=== PATIENT | female | born 1985 | race Caucasian/White ===

== ENCOUNTER 2016-11-07 14:43 | Inpatient (IN) | payer OTHER ==
[2016-11-07 15:06] VITALS: BMI 29.4
[2016-11-07] MEDS ORDERED: Ampicillin 2 GM in Sodium Chloride 0.9% 100 ML IVPB STA (15:16)
[2016-11-07] MEDS: Lactated Ringer's 1,000 ML IV SCH (15:30)
[2016-11-07 16:01] LABS: BASO # 0.1 K/uL (0.0-0.2); BASO % 0.5 % (0.0-2.0); EOS # 0.4 K/uL (0.0-0.7); EOS % 3.5 % (0.0-4.0); HEMATOCRIT 35.1 % (34.0-47.0); LYMPH # 2.6 K/uL (1.0-4.3); LYMPH % 23.5 % (20.0-40.0); MEAN CELL VOLUME 80.4 fl (81.0-99.0); MEAN CORPUSCULAR HEMOGLOBIN 26.7 pg (27.0-31.0); MEAN CORPUSCULAR HGB CONC 33.2 g/dL (33.0-37.0); MEAN PLATELET VOLUME 10.7 fl (7.2-11.7); MONO # 0.7 K/uL (0.0-0.8); MONO % 6.4 % (0.0-10.0); NEUT # 7.3 K/uL (1.8-7.0); NEUT % 66.1 % (50.0-75.0); WHITE BLOOD COUNT 11.1 K/uL (4.8-10.8)
[2016-11-07] MEDS: Betamethasone Soluspan 30 mg/5mL Inj Susp IM ONE (16:03)
--- NOTE | 2016-11-07 16:29 | OBADHP ---
Datetime: 11/07/2016 16:28 Admit Comment, IP Provider: 31 yo edc 12/08 by 18wk us presents for admission for induction 2 ndary to anhydramnios diagnosed today. She denies ctxs, srom, bleeding or decreased fm PMHx sig for hypothyroidism obhx: @term w/ h/o GDM nkda medicpnv synthroid i: 35.4WKS ANHYDRAMNIOS P: admit for induction Betamethasone today. Repeat in 24hrs. indications for delivery d/w pt. Datetime: 11/07/2016 16:23 Pelvic Type - PN: Not Done Extremities - PN: Normal Abdomen - PN: Normal Back - PN: Normal Heart - PN: Normal Neurologic - PN: Normal HEENT - PN: Normal General - PN: Normal FHR - Baseline A Provider: 130 Gestation - Est Wks by US: 35.4 Vital Signs Provider: Within Normal Limits IP Chief Complaint: Other NICHD Variability Prov Fetus A: Moderate 6-25bpm NICHD Accel Fetus A IP Provider: [id number] FHR Category Provider Fetus A: Category I NICHD Decel Fetus A IP Provider: None Genitourinary Exam: Not Done EGA AdmitDate IP: 35.4 IP Adm Impression: , intrauterine IP Admit Plan: Admit to unit
--- NOTE | 2016-11-07 18:14 | OBADHP ---
Datetime: 11/07/2016 18:04 IP Chief Complaint Other: anhydramnios IP Adm Impression Other: anhydramnios possible ROM Admit Comment, IP Provider: had discussed sono with perinatologist who advises for delivery but to s tart on antibiotics for possible suspected ROM, and steroids since prematurity. PT and partner discu ssed the situation and understands and agreed. Extremities - PN: Normal Abdomen - PN: Abnormal Breast - PN: Normal Lungs - PN: Normal Thyroid - PN: Normal Neurologic - PN: Normal General - PN: Normal Weight - Estimated: 5# 9oz by sono Presentation-Admit: cephalic FHR - Baseline A Provider: 150's Membranes, Provider: anhydramnios Contraction Comments Provider: irregular Comments, ACOG Physical Exam: abd at 34 cm above sp, fundus NT Ext no calf tenderness Gestation - Est Wks by US: 35w 4d Pool Provider: Negative Vital Signs Provider: Reviewed IP Chief Complaint: Suspected ruptured membranes; Other NICHD Variability Prov Fetus A: Moderate 6-25bpm NICHD Accel Fetus A IP Provider: [id number] NICHD Decel Fetus A IP Provider: None Dilatation, Provider: closed Effacement, Provider: soft Genitourinary Exam: Normal DTRs - PN: Normal EGA AdmitDate IP: 35.4 IP Adm Impression: , intrauterine IP Admit Plan: Admit to unit; Initiate labor induction protocol
[2016-11-07] MEDS: AMPicillin 1 GM in Sodium Chloride 0.9% 100 ML IVPB SCH (20:25)
[2016-11-08] MEDS: AMPicillin 1 GM in Sodium Chloride 0.9% 100 ML IVPB SCH ×6 (00:30→20:30)
[2016-11-08] MEDS: Lactated Ringer's 1,000 ML IV SCH ×2 (01:00→23:00)
[2016-11-08] MEDS: Betamethasone Soluspan 30 mg/5mL Inj Susp IM ONE (16:12)
[2016-11-09] MEDS: AMPicillin 1 GM in Sodium Chloride 0.9% 100 ML IVPB SCH ×5 (00:30→18:04)
[2016-11-09] MEDS ORDERED: Lactated Ringer's 1,000 ML IV SCH (13:15)
[2016-11-09] MEDS ORDERED: Bupivacaine HCl 0.25% PF (10 ml) Inj ONE (13:28)
[2016-11-09] MEDS ORDERED: Fentanyl/Bupivacaine HCl 250 ML EPI ONE (13:28)
[2016-11-09] MEDS: Lactated Ringer's 1,000 ML IV SCH (14:00)
[2016-11-09] MEDS ORDERED: ePHEDrine 50 mg/ml Inj ONE (21:35)
[2016-11-09] MEDS ORDERED: Morphine 1 mg/ml preservative-free Inj(Duramorph) ONE (21:36)
[2016-11-09] MEDS ORDERED: Oxycodone/Acetaminophen 5/325 mg Tab PO PRN (23:04)
[2016-11-10] MEDS ORDERED: Oxycodone/Acetaminophen 5/325 mg Tab PO PRN (00:32)
[2016-11-10] MEDS ORDERED: cefOXitin Sodium 1 GM in Sodium Chloride 0.9% 100 ML IVPB SCH (01:00)
[2016-11-10] MEDS ORDERED: DiphenhydrAMINE 50 mg/ml Inj IVP PRN (02:25)
[2016-11-10] MEDS: Levothyroxine 50 MCG TAB PO SCH (06:01)
[2016-11-10] MEDS ORDERED: Levothyroxine 50 MCG TAB PO SCH (06:30)
--- NOTE | 2016-11-10 08:06 | CP.PCM.PN ---
Subjective - Date & Time of Evaluation Date of Evaluation: 11/10/16 Time of Evaluation: 07:44 - Subjective Subjective: 31y/o F with pmhx significant for hypothyroid s/p primary for oligohydramnios complicated by inadvertant dural puncture during epidural labor anesthesia. Intrathecal catheter was used during labor, bolused for the c- section with no apparent complications. Patient was seen and examined with no motor or sensor deficits, c/o moderate abdominal pain. Had extensive discussion with both patient and regarding possibilty of PDPH and need of blood patch. They both understood and agreed. Will remove catheter tomorrow and re- assess. Objective - Medications Medications: Current Medications Diphenhydramine HCl (Benadryl) 50 mg IVP Q6 PRN PRN Reason: Itching / Pruritus Docusate Sodium (Colace) 100 mg PO BID [facility] Cefoxitin Sodium 1 gm/ Sodium (Chloride) 100 mls @ 100 mls/hr IVPB Q8 [facility] Oxytocin (Pitocin 20 Units In Lr) 1,000 mls @ 125 mls/hr IV .Q8H PRN PRN Reason: Post Ceaserean Section Ibuprofen (Motrin Tab) 600 mg PO Q4H PRN PRN Reason: Pain, Mild (1-3) Ketorolac Tromethamine (Toradol) 30 mg IVP Q6 PRN PRN Reason: For PCEA Breakthrough Pain Levothyroxine Sodium (Synthroid) 50 mcg PO DAILY@0630 [facility] Last Admin: 11/10/16 06:01 Dose: 50 mcg Ondansetron HCl (Zofran Inj) 4 mg IVP Q6 PRN PRN Reason: Nausea/Vomiting Oxycodone/Acetaminophen (Percocet 5/325 Mg Tab) 1 tab PO Q4 PRN PRN Reason: Pain, moderate (4-7) Stop: 11/12/16 23:05 - Labs Labs: 11/07/16 15:30
--- NOTE | 2016-11-10 08:25 | OBDS ---
DELIVERY PERSONNEL Delivery Doctor: Shreyas Martínez MD Scrub Nurse: Stacey Tang RN Executor Of Estate: Tereza Jamil RN Anesthesiologist: Marline MATERNAL INFORMATION Delivery Anesthesia: Epidural Medications in Delivery: Pitocin Estimated Blood Loss (ml): 800 Placenta Cultured: Yes Other Maternal Complications: anhydramnios Provider Comments: see dictated surgeons note LABOR SUMMARY EDC: 12/08/2016 00:00 No. Babies in Womb: 1 Attempted: No Labor Anesthesia: Epidural LABOR INFORMATION Reason for Induction Other: anhydramnios Onset of Labor: 11/09/2016 13:24 Cervical Ripening Agents: Cervidil (Annotations: Cervidil Removed By Dr. Martínez ) Oxytocin: Induction Group B Beta Strep: Negative Antibiotics # of Doses: 12 Antibiotics Time of Last Dose: 1804 Steroids Given: Full Course; > 24 Hours before Delivery Reason Steroids Not Administered: Not Applicable MEMBRANES Membranes Rupture Method: Artificial Rupture of Membranes: 11/09/2016 22:10 Length of Rupture (hrs): 0.02 Amniotic Fluid Color: Clear Amniotic Fluid Amount: Scant Amniotic Fluid Odor: Normal STAGES OF LABOR Stage 3 hrs: 0 Stage 3 min: 1 Total Time in Labor hrs: 8 Total Time in Labor min: 48 VAGINAL DELIVERY Episiotomy: None Laceration Extension: N/A Laceration Type: None Laceration Repair: Not Applicable CSECTION DELIVERY Primary Indication: Arrest of Dilitation Other Primary Indication: Nonreassuring Heart Tracing Secondary Indication: anhydramnios CSection Urgency: Non Elective CSection Incidence: Primary Labor: Labor Elective: Nonelective CSection Incision: Lower Uterine Transverse Uterine Closure: Double-layer closure BABY A INFORMATION Infant Delivery Date/Time: 11/09/2016 22:11 Method of Delivery: Born in Route : No : N/A Forceps: N/A Vacuum Extraction: N/A Shoulder Dystocia : No SHOULDER DYSTOCIA BABY A Delivery Date/Time: 11/09/2016 22:11 PRESENTATION/POSITION BABY A Presentation: Cephalic PLACENTA INFORMATION BABY A Placenta Delivery Time : 11/09/2016 22:12 Placenta Method of Delivery: Expressed Placenta Status: Delivered SCORES BABY A Heart Rate 1 min: >100 bpm Resp Effort 1 min: Good Cry Reflex Irritability 1 min: Cough or Sneeze or Pulls Away Muscle Tone 1 min: Active Motion Color 1 min: Body [place], Extremities Blue Resuscitation Effort 1 min: Tactile Stimulation SCORE 1 MIN: 9 Heart Rate 5 min: >100 bpm Resp Effort 5 min: Good Cry Reflex Irritability 5 min: Cough or Sneeze or Pulls Away Muscle Tone 5 min: Active Motion Color 5 min: Body [place], Extremities Blue Resuscitation Effort 5 min: N/A SCORE 5 MIN: 9 INFORMATION BABY A Gestational Age at Delivery: 35.6 Gestational Status: Outcome : Liveborn Condition : Stable Sex: Male IDENTIFICATION/MEDS BABY A ID Band Number: [id number] ID Band Location: Left Leg; Left Arm WEIGHT/LENGTH BABY A Infant Birthweight (gms): 2505 Infant Weight (lb): 5 Weight (oz): 8 Infant Length Inches: 18 1/4 CORD INFORMATION BABY A No. Cord Vessels: 3 Nuchal Cord : N/A Cord pH Baby Arterial: n/a Infant Cord pH Baby Venous: n/a Cord Blood Taken: Yes Infant Suction: Mouth; Nose ASSESSMENT BABY A Complications: Decreased Variability; Multiple Variable Decels Physical Findings at Delivery: Within Normal Limits Physical Findings Other: , SGA Infant Respirations: Grunting Head Control Clerk/ALS Called : No Infant Care By: Dr Lali Yip Transferred To: [facility]
--- NOTE | 2016-11-10 08:33 | OBPPN ---
Datetime: 11/10/2016 08:26 PP Pain Prov: Within normal limits PP Pain Prov comment: no SOB, chest pains or leg pains PP Nausea Prov: Denies PP Nausea Prov comment: no headaches PP Breasts Prov: Normal PP Lungs Prov: Normal PP Abdomen/Uterus Prov: Abnormal PP Lochia Prov: Normal PP Vulva/Perineum Prov: Normal PP CVA Tenderness Prov: Normal PP Extremities Prov: Normal PP C/S Incision Prov: Normal PP Progress Prov: Normal PP Comments Phys Exam Prov: breast feeding; Abd soft not distended, fundus firm, dressing intact no sign of active bleeding, Negron in place draining yellowish fluid, Ext no calf tenderness, venodyne in place. PP Impression Prov: Normal progression PP Plan Prov: Continue present management PP Progress Note Prov: Visited by anesthesiologist this am, breast feeding with no problems at this time. Will keep negron until pt able to radha OOB Pending CBC tjhis am Start advancing diet Continue po care. IP PP Procedures: None
[2016-11-10] MEDS: cefOXitin Sodium 1 GM in Sodium Chloride 0.9% 100 ML IVPB SCH ×2 (08:55→16:32)
[2016-11-11] MEDS: Levothyroxine 50 MCG TAB PO SCH (06:30)
[2016-11-11 09:20] LABS: HEMATOCRIT 32.7 % (34.0-47.0); MEAN CELL VOLUME 80.4 fl (81.0-99.0); MEAN CORPUSCULAR HEMOGLOBIN 26.6 pg (27.0-31.0); MEAN CORPUSCULAR HGB CONC 33.1 g/dL (33.0-37.0); RED CELL DISTRIBUTION WIDTH 14.2 % (11.5-14.5); WHITE BLOOD COUNT 18.9 K/uL (4.8-10.8)
[2016-11-11] MEDS ORDERED: Apap-Butalbital-Caffeine 325-50-40mg Tab PO SCH (10:00)
--- NOTE | 2016-11-11 10:05 | CP.PCM.PN ---
Subjective - Date & Time of Evaluation Date of Evaluation: 11/11/16 Time of Evaluation: 09:59 - Subjective Subjective: Patient seen & examined. Complaining of new neck stiffness/soreness since yesterday afternoon. Worsened with sitting up accompanied with mild/moderate headache. Likely post-dural puncture headache symptoms from inadvertant dural puncture on 11/09. Counseled on laying supine as much as possible, encouraged hydration with caffeinated beverages and discussed the possibilty of epidural blood patch. Will order IV fluids, Fiorcet and continue to follow. Both patient & understand management and plan. Objective - Medications Medications: Current Medications Acetaminophen/Butalbital/Caffeine (Fioricet) 1 tab PO Q4 [facility] Stop: 11/12/16 10:00 Diphenhydramine HCl (Benadryl) 50 mg IVP Q6 PRN PRN Reason: Itching / Pruritus Docusate Sodium (Colace) 100 mg PO BID [facility] Last Admin: 11/11/16 08:22 Dose: 100 mg Lactated Ringer's (Lactated Ringer's) 1,000 mls @ 125 mls/hr IV .Q8H [facility] Stop: 11/12/16 10:00 Ibuprofen (Motrin Tab) 600 mg PO Q4H PRN PRN Reason: Pain, Mild (1-3) Last Admin: 11/11/16 07:42 Dose: 600 mg Ketorolac Tromethamine (Toradol) 30 mg IVP Q6 PRN PRN Reason: For PCEA Breakthrough Pain Levothyroxine Sodium (Synthroid) 50 mcg PO DAILY@0630 [facility] Last Admin: 11/11/16 06:30 Dose: 50 mcg Ondansetron HCl (Zofran Inj) 4 mg IVP Q6 PRN PRN Reason: Nausea/Vomiting Oxycodone/Acetaminophen (Percocet 5/325 Mg Tab) 1 tab PO Q4 PRN PRN Reason: Pain, moderate (4-7) Stop: 11/12/16 23:05 Last Admin: 11/10/16 14:44 Dose: 1 tab - Labs Labs: 11/11/16 08:30
[2016-11-11] MEDS: Lactated Ringer's 1,000 ML IV SCH ×2 (10:14→19:04)
--- NOTE | 2016-11-11 11:59 | OBPPN ---
Datetime: 11/11/2016 11:49 PP Pain Prov: Within normal limits PP Pain Prov comment: no SOB chest pains or leg pains PP Nausea Prov: Denies PP Flatus Prov: Yes PP BM Prov: No PP Nausea Prov comment: c/o headache when sitting and some neck pain PP Breasts Prov: Normal PP Lungs Prov: Normal PP Abdomen/Uterus Prov: Abnormal PP Lochia Prov: Normal PP Vulva/Perineum Prov: Normal PP CVA Tenderness Prov: Normal PP Extremities Prov: Normal PP C/S Incision Prov: Normal PP Progress Prov: Normal PP Comments Phys Exam Prov: Breast not engourged, abd soft not distended fundus firm below the umb. Incissiion clean and dry no suppt or discharge no active bleeding Ext no calf tenderness. PP Impression Prov: Normal progression PP Plan Prov: Continue present management PP Progress Note Prov: has been evaluated by anesthesia for spinal headache and cathether removed wi ll be re-evaluated tonight for possible blood patch Continue PO care IP PP Procedures: None Vital Signs Provider PP: Reviewed
[2016-11-11] MEDS: Apap-Butalbital-Caffeine 325-50-40mg Tab PO SCH ×3 (14:08→21:50)
[2016-11-11] MEDS ORDERED: Lactated Ringer's 500 ML IV SCH (15:00)
[2016-11-12] MEDS: Apap-Butalbital-Caffeine 325-50-40mg Tab PO SCH ×5 (02:00→20:56)
[2016-11-12] MEDS: Lactated Ringer's 1,000 ML IV SCH ×5 (02:00→17:32)
[2016-11-12] MEDS: Levothyroxine 50 MCG TAB PO SCH (06:08)
--- NOTE | 2016-11-12 09:55 | CP.PCM.PN ---
Subjective - Date & Time of Evaluation Date of Evaluation: 11/12/16 Time of Evaluation: 09:36 - Subjective Subjective: Patient seen and examined. Following 24 hours of conservative management ( aggressive IV hydration, Fiorcet, etc) patient still complaining of headache and neck stiffness, so after extensive discussion with patient & decision to perform epidural blood patch. Informed consent was obtained, time out was called with nurse present and procedure was performed. While carefully advancing the Tuohy needle CSF appeared, procedure was abandoned and sphenopalantine ganglion block was performed. Again, there was an extensive discussion with the patient and regarding the procedures. All questions were answered. Will continue Fiorcet & Motrin for pain management and aggressive IV hydration. Objective - Medications Medications: Current Medications Diphenhydramine HCl (Benadryl) 50 mg IVP Q6 PRN PRN Reason: Itching / Pruritus Docusate Sodium (Colace) 100 mg PO BID [facility] Last Admin: 11/11/16 16:44 Dose: 100 mg Lactated Ringer's (Lactated Ringer's) 1,000 mls @ 125 mls/hr IV .Q8H [facility] Stop: 11/12/16 10:00 Last Admin: 11/12/16 02:00 Dose: 125 mls/hr Ibuprofen (Motrin Tab) 600 mg PO Q4H PRN PRN Reason: Pain, Mild (1-3) Last Admin: 11/12/16 00:36 Dose: 600 mg Ketorolac Tromethamine (Toradol) 30 mg IVP Q6 PRN PRN Reason: For PCEA Breakthrough Pain Levothyroxine Sodium (Synthroid) 50 mcg PO DAILY@0630 [facility] Last Admin: 11/12/16 06:08 Dose: 50 mcg Ondansetron HCl (Zofran Inj) 4 mg IVP Q6 PRN PRN Reason: Nausea/Vomiting Oxycodone/Acetaminophen (Percocet 5/325 Mg Tab) 1 tab PO Q4 PRN PRN Reason: Pain, moderate (4-7) Stop: 11/12/16 23:05 Last Admin: 11/10/16 14:44 Dose: 1 tab - Labs Labs: 11/11/16 08:30
--- NOTE | 2016-11-12 10:24 | CP.PCM.PN ---
Subjective - Date & Time of Evaluation Date of Evaluation: 11/12/16 Time of Evaluation: 09:30 - Subjective Subjective: After aborted epidural blood patch, bilateral sphenopalatine ganglion block was performed. Patient was placed in supine position with neck extended. A 20G IV catheter was inserted into the left nostril until resistance was met, then 1cc of 4% lidocaine was gradually given. A nasal swab soaked in Lidocaine was then placed into the nostril. The same procedure was repeated in the right nostril. The swabs were then removed after 10 minutes. Patient tolerated procedure well. Objective - Medications Medications: Current Medications Acetaminophen/Butalbital/Caffeine (Fioricet) 1 tab PO Q4 [facility] Stop: 11/13/16 10:00 Diphenhydramine HCl (Benadryl) 50 mg IVP Q6 PRN PRN Reason: Itching / Pruritus Docusate Sodium (Colace) 100 mg PO BID [facility] Last Admin: 11/12/16 09:36 Dose: 100 mg Lactated Ringer's (Lactated Ringer's) 1,000 mls @ 125 mls/hr IV .Q8H [facility] Stop: 11/13/16 10:00 Ibuprofen (Motrin Tab) 600 mg PO Q4H PRN PRN Reason: Pain, Mild (1-3) Last Admin: 11/12/16 00:36 Dose: 600 mg Ketorolac Tromethamine (Toradol) 30 mg IVP Q6 PRN PRN Reason: For PCEA Breakthrough Pain Levothyroxine Sodium (Synthroid) 50 mcg PO DAILY@0630 [facility] Last Admin: 11/12/16 06:08 Dose: 50 mcg Ondansetron HCl (Zofran Inj) 4 mg IVP Q6 PRN PRN Reason: Nausea/Vomiting Oxycodone/Acetaminophen (Percocet 5/325 Mg Tab) 1 tab PO Q4 PRN PRN Reason: Pain, moderate (4-7) Stop: 11/12/16 23:05 Last Admin: 11/10/16 14:44 Dose: 1 tab - Labs Labs: 11/11/16 08:30
[2016-11-12 17:02] LABS: BASO % 0.1 % (0.0-2.0); EOS # 0.3 K/uL (0.0-0.7); EOS % 1.7 % (0.0-4.0); HEMATOCRIT 32.6 % (34.0-47.0); LYMPH # 3.7 K/uL (1.0-4.3); LYMPH % 21.7 % (20.0-40.0); MEAN CELL VOLUME 79.3 fl (81.0-99.0); MEAN CORPUSCULAR HEMOGLOBIN 26.5 pg (27.0-31.0); MEAN CORPUSCULAR HGB CONC 33.4 g/dL (33.0-37.0); MEAN PLATELET VOLUME 9.9 fl (7.2-11.7); MONO % 5.7 % (0.0-10.0); NEUT # 12.2 K/uL (1.8-7.0); NEUT % 70.8 % (50.0-75.0); WHITE BLOOD COUNT 17.3 K/uL (4.8-10.8)
[2016-11-13] MEDS: Apap-Butalbital-Caffeine 325-50-40mg Tab PO SCH ×6 (02:18→21:48)
[2016-11-13] MEDS: Levothyroxine 50 MCG TAB PO SCH (06:38)
--- NOTE | 2016-11-13 10:19 | OBPPN ---
Datetime: 11/13/2016 10:11 PP Pain Prov: Abnormal PP Pain Prov comment: No SOB, chest pains or leg pain PP Nausea Prov: Denies PP Flatus Prov: Yes PP BM Prov: Yes PP Nausea Prov comment: c/o neck and headaches still not relieved PP Breasts Prov: Normal PP Lungs Prov: Normal PP Abdomen/Uterus Prov: Abnormal PP Lochia Prov: Normal PP Vulva/Perineum Prov: Normal PP CVA Tenderness Prov: Normal PP Extremities Prov: Normal PP C/S Incision Prov: Normal PP Progress Prov: Normal PP Comments Phys Exam Prov: Abd soft not distended, fundur firm below umb. Incision clean and dry n o suppt or discharge, no sign of infection Ext no edema or calf tenderness PP Impression Prov: Pain PP Plan Prov: Continue present management PP Impression Other Prov: spinal headaches PP Progress Note Prov: Discussed with anesthesia team (Dr Castro and Dr Tarango) and attempted blood patc h yesterday not working and will continue with present management since it appears small amount of im provement CBC improving and will engoureaged po fluids and continue for now with present management B oth pt and explained the situation and the plan and questions were answered to the best of my abilities. Understands and agreed. IP PP Procedures: None Vital Signs Provider PP: Reviewed
--- NOTE | 2016-11-13 14:44 | CP.PCM.PN ---
Subjective - Date & Time of Evaluation Date of Evaluation: 11/13/16 Time of Evaluation: 14:36 - Subjective Subjective: Patient seen and examined. Complaining of continued neck pain/stiffness and headache worsened with sitting up. Denies photophobia or tinnitus. Mild/ Moderate relief of symptoms with current pain medication regimen. Will keep admitted in hospital for one more day and re-asses tomorrow morning for discharge. Spoke at length with both patient& regarding plan and both verbalized understanding Objective - Medications Medications: Current Medications Acetaminophen/Butalbital/Caffeine (Fioricet) 1 tab PO Q4H [facility] Last Admin: 11/13/16 14:20 Dose: 1 tab Diphenhydramine HCl (Benadryl) 50 mg IVP Q6 PRN PRN Reason: Itching / Pruritus Docusate Sodium (Colace) 100 mg PO BID [facility] Last Admin: 11/13/16 08:21 Dose: 100 mg Ibuprofen (Motrin Tab) 600 mg PO Q4H PRN PRN Reason: Pain, Mild (1-3) Last Admin: 11/13/16 08:21 Dose: 600 mg Ketorolac Tromethamine (Toradol) 30 mg IVP Q6 PRN PRN Reason: For PCEA Breakthrough Pain Ketorolac Tromethamine (Toradol) 30 mg IVP Q6 [facility] Stop: 11/14/16 14:16 Last Admin: 11/13/16 14:21 Dose: 30 mg Levothyroxine Sodium (Synthroid) 50 mcg PO DAILY@0630 [facility] Last Admin: 11/13/16 06:38 Dose: 50 mcg Ondansetron HCl (Zofran Inj) 4 mg IVP Q6 PRN PRN Reason: Nausea/Vomiting - Labs Labs: 11/12/16 16:20
[2016-11-13] MEDS: Lactated Ringer's 1,000 ML IV SCH (20:26)
[2016-11-14] MEDS: Apap-Butalbital-Caffeine 325-50-40mg Tab PO SCH ×2 (03:03→06:44)
[2016-11-14] MEDS: Lactated Ringer's 1,000 ML IV SCH (04:34)
[2016-11-14] MEDS: Levothyroxine 50 MCG TAB PO SCH (06:17)
--- NOTE | 2016-11-14 08:24 | OBPPN ---
Datetime: 11/14/2016 08:15 PP Pain Prov: Abnormal PP Pain Prov comment: no SOB, chest pains or leg pains PP Nausea Prov: Denies PP Flatus Prov: Yes PP BM Prov: Yes PP Nausea Prov comment: still c/o neckstiffness and if stands for long period some heada PP Flatus Prov comment: Admits better than yesterday and the day before PP Breasts Prov: Normal PP Lungs Prov: Normal PP Abdomen/Uterus Prov: Abnormal PP Lochia Prov: Normal PP Vulva/Perineum Prov: Normal PP CVA Tenderness Prov: Normal PP Extremities Prov: Normal PP C/S Incision Prov: Normal PP Progress Prov: Normal PP Comments Phys Exam Prov: Breast not engorged NT breast feeding; Abd soft not distended, fundus firm below the umb. Incision clean and dry no suppt or discharge P rolene in place no sign of active bleeding ot infection. Ext no leg edema or calf tenderness. PP Plan Prov: Continue present management PP Impression Other Prov: spinal headaches PP Progress Note Prov: Will discuss with anesthesia for possible D/C this pm and follow up in office and in pain Clinic. IP PP Procedures: None
--- NOTE | 2016-11-14 08:42 | OBDCSUM ---
Datetime: 11/14/2016 08:38 Discharged to, Provider: Home Follow up at, Provider: Dr Martínez Disch Instr Activity: Bedrest; May be up to bathroom; May be up for meals; May Shower Disch Instr Diet: Regular Discharge Instructions, Provider: Routine instructions given Discharge Diagnosis, Provider: Term Delivered Discharge Time: 11/14/2016 12:00 Follow up in weeks, Provider: 1 wk Contraception discussed, Prov: Yes Disch Activity Restrictions: No exercising; No lifting; No driving; Minimize walking; Minimize stair -climbing; No sexual activity; Nothing in vagina - [place], tampons, douche Discharge Comment, Provider: follow up in pain clinic with Dr Castro who will also contact her on for follow up Rx for Fioricet given Discharge Diagnosis Prov Other: spinal headaches Contraception after Delivery: Undecided
[2016-11-14 17:55] VITALS: BP 120/70; PULSE 59; RESP 20; TEMP 98.7; O2SAT 99
--- NOTE | 2016-11-15 10:37 | OP ---
PROCEDURE DATE: 11/09/2016 PREOPERATIVE DIAGNOSES: 1. at 35 plus weeks' gestation. 2. Anhydramnios. 3. Arrest of dilatation. 4. Nonreassuring tracing. 5. Thyroid disease. POSTOPERATIVE DIAGNOSES: 1. at 35 plus weeks' gestation. 2. Fibroid uterus. PROCEDURE PERFORMED: Primary low-transverse segment caesarean section. SURGEON: Dr. Kalpesh Martínez. SERVICE ASSOCIATE: Dr. Obinna Rodriguez, who was there for the entire duration of the case. Busser needed in providing positioning of the patient, delivering of the baby, opening and closure of the abdomen. ANESTHESIA USED: Epidural. ANESTHESIA ADMINISTERED BY: Sam Horan MD ESTIMATED BLOOD LOSS: 800 mL DRAINS USED: None. REPLACEMENTS USED: None. FINDINGS: 1. Delivered living baby boy, baby appears adequate for gestational age, baby cried spontaneously, pediatrist in attendance, score of 9 and 9. 2. Amniotic fluid clear. 3. Placenta complete and intact. 4. Both tubes and ovaries appeared grossly within normal limits to inspection bilaterally. 5. Two fibroids present, one intramural about 3 to 4 cm in the mid section of the uterus and the other one about 2 to 3 cm subserosal in the anterior fundal area on the uterus. DESCRIPTION OF PROCEDURE: The patient was taken to the operating room and placed on the operating table in a supine position with an indwelling Palacios catheter draining clear fluid. At this time, epidural anesthesia was previously induced with Augmentin and the Venodyne boots were applied to both legs. The abdomen was then draped and prepped in the usual sterile manner. Anesthesia tested and found to be well secured. A Pfannenstiel incision was then made using sharp dissection and the incision was then extended down to subcutaneous tissue also using sharp dissection. Hemostasis was obtained by means of electrocoagulation. Fascia was then identified, was then entered, and the midline incision of the fascia was then extended laterally on each direction. At this time, rectus muscle was then identified and was then slit in the midline, exposing the peritoneum. Peritoneal layer was then picked up using two Meryl clamps, retracted superiorly, and then entered using sharp dissection. Incision in the peritoneum was then extended superiorly and inferiorly under direct visualization. The bladder was then identified, was retracted inferiorly using the [place] retractor. The low transverse segment of the uterus was then identified and the visceroperitoneum covering this area was then entered using sharp dissection. Using blunt dissection, a bladder flap was then created and retracted inferiorly using the same Jorge retractor. An incision was then made in the low transverse segment of the uterus upon entering the uterine cavity. Clear fluid noted to be present. The incision was then extended laterally in each direction using bandage scissors. Using the manual scooping procedure, living baby boy was then delivered. The baby was immediately aspirated using a bulb suction. The baby appears adequate for gestational age. Baby cried spontaneously. The umbilicus was then doubly clamped, cut, and the baby handed to the pediatric personnel who was standing by. Samples of cord blood were then obtained and the placenta was then delivered complete and intact. The uterus was then exteriorized to provide better visualization. The uterine incision was then secured using multiple declamps. The uterine cavity was then thoroughly cleaned using moist lap pads. The uterus massaged and contracted well. At this time, two fibroids present, one appeared to be around 3 to 4 cm in the mid section of the uterus anteriorly, and the other one 2 to 3 cm subserosal on the fundal anterior aspect of the uterus. The uterine incision was then approximated using 0 Vicryl suture in a continuous interlocking manner. A second layer was also applied using 0 Vicryl suture in a continuous manner. Hemostasis was checked and found to be well secured. The bladder flap was then approximated using a 2-0 Rapide in a continuous manner. Again, hemostasis checked and found to be well secured. Free amniotic fluid and blood were then evacuated from the pelvic cavity. Pelvic cavity was then thoroughly irrigated using saline solution. The uterus was then allowed to retract back into its original position. Both tubes and ovaries appeared grossly within normal limits to inspection bilaterally. Again, all operative area checked, hemostatically secured and the peritoneum was then approximated using 0 Vicryl suture in a continuous manner. Rectus muscle was also approximated at the midline using 0 Vicryl suture in a continuous manner. At this time, the fascia was then identified, was then approximated using 1 Vicryl suture in a continuous manner. Fascia was then checked and found to be free of defects. Subcutaneous tissue was then irrigated using saline solution and approximated using several interrupted 2-0 plain sutures. The skin was then approximated using a 3-0 Prolene in a subcuticular fashion. Steri-Strips were then applied. Instruments, sponge and needle count were correct x3. Clear fluid noted to be present in the Palacios bag at this time. The patient tolerated the procedure well. There were no complications. She was transferred to the recovery room in satisfactory condition. Kalpesh Martínez MD
== END 2016-11-14 13:18 | disposition home or self-care (01) | DRG 765 ==
LOC: H.EROB2 14:43 → H.L&D 15:16 → H.OB/GYN 11-10 02:04
PROVIDERS: ADMIT Specialist; ATTEND Specialist
PROC: 10D00Z1 Extraction of Products of Conception, Low, Open Approach (ICD-10-PCS; principal; 2016-11-07)
PROC: 4A1HXCZ Monitoring of Products of Conception, Cardiac Rate, External Approach (ICD-10-PCS; 2016-11-07)
DX: O76 Abnormality in fetal heart rate and rhythm complicating labor and delivery (principal); O60.14X0 Preterm labor third trimester with preterm delivery third trimester, not applicable or unspecified; O41.03X0 Oligohydramnios, third trimester, not applicable or unspecified; O36.5930 Maternal care for other known or suspected poor fetal growth, third trimester, not applicable or unspecified; Z37.0 Single live birth; D25.9 Leiomyoma of uterus, unspecified; O34.13 Maternal care for benign tumor of corpus uteri, third trimester; O99.284 Endocrine, nutritional and metabolic diseases complicating childbirth; E03.9 Hypothyroidism, unspecified; Z3A.35 35 weeks gestation of pregnancy; O62.0 Primary inadequate contractions; Z86.32 Personal history of gestational diabetes